=== PATIENT | female | born 1990 | race Caucasian/White ===

== ENCOUNTER → 2016-02-26 | Outpatient (CLI) | payer MEDICARE, MEDICAID ==
[~2016-02-26] MED LIST: BIRTH CONTROL PO; CILOXAN 5 ML5 ML OT; LANTUS100 U/ML SC; MULTIPLE VITAMI1 TA3 PO; NATURAL ZINC1 TAB PO; NOVOLOG10 ML SC; SINGULAIR10 M1 PO; Synthroid,Lev100 MCG PO; VITAMIN D5000 I3 PO; ZYRTEC10 M3 PO
[2016-02-26 16:54] LABS: HEMOGLOBIN A1c 6.7 % (4.8-5.6)
[2016-02-26 17:08] LABS: FREE T4 1.17 ng/dl (0.76-1.46)
== END | disposition home or self-care (01) ==
LOC: LAB 16:06
PROVIDERS: Family Medicine
DX: E10.9 Type 1 diabetes mellitus without complications (principal); E03.9 Hypothyroidism, unspecified

== ENCOUNTER → 2017-05-10 | Outpatient (CLI) | payer MEDICARE, MEDICAID | END | disposition home or self-care (01) | LOC: RAD 15:34 | DX: J84.89 Other specified interstitial pulmonary diseases (principal); J06.9 Acute upper respiratory infection, unspecified; J18.9 Pneumonia, unspecified organism; E03.9 Hypothyroidism, unspecified; E10.9 Type 1 diabetes mellitus without complications ==

== ENCOUNTER → 2019-08-30 | Outpatient (CLI) | payer OTHER, MEDICAID ==
[2019-08-30 09:44] LABS: MEAN CELL VOLUME 101.3 fl (81.0-99.0); MEAN CORPUSCULAR HGB 32.9 pg (27.0-31.0); MEAN CORPUSCULAR HGB CONC 32.5 g/dl (33.0-37.0); MEAN PLATELET VOLUME 9.4 fl (9.6-12.3); RED BLOOD COUNT 3.95 10*6/uL (4.10-5.10); RED CELL DISTRI WIDTH 13.7 % (0-14.5)
[2019-08-30 10:16] LABS: ALBUMIN 3.3 gm/dl (3.1-4.5); BUN 21 mg/dl (7-24); CHLORIDE 106 mmol/L (98-107); FREE T4 1.07 ng/dl (0.76-1.46); HDL CHOLESTEROL 97 mg/dl (40-60); POTASSIUM 3.9 mmol/L (3.5-5.1); SODIUM 138 mmol/L (136-145)
[2019-08-30 10:21] LABS: ALKALINE PHOSPHATASE 49 U/L (45-117); CHOLESTEROL 232 mg/dL (<200); CREATININE 0.73 mg/dL (0.55-1.02); LDL CHOLESTEROL 130 mg/dL (9-159); SGOT/AST 22 IU/L (3-35); SGPT/ALT 37 U/L (12-78); TOTAL PROTEIN 7.5 gm/dL (6.4-8.2); TRIGLYCERIDES 27 mg/dl (<150); VLDL CHOLESTEROL 5 mg/dL (6-40)
== END | disposition home or self-care (01) ==
LOC: LAB 08:24
PROVIDERS: Family Medicine
DX: E78.00 Pure hypercholesterolemia, unspecified (principal); E55.9 Vitamin D deficiency, unspecified; E10.9 Type 1 diabetes mellitus without complications; Q90.2 Trisomy 21, translocation

== ENCOUNTER → 2020-01-19 | Outpatient (CLI) | payer OTHER, MEDICAID | END | disposition home or self-care (01) | LOC: COVID19 10:31 | PROVIDERS: ATTEND Internal Medicine | DX: Z20.828 Contact with and (suspected) exposure to other viral communicable diseases (principal) ==

== ENCOUNTER → 2020-03-04 | Outpatient (CLI) | payer OTHER, MEDICAID ==
[2020-03-04 08:29] LABS: HEMATOCRIT 38.7 % (37.0-47.0); MEAN CORPUSCULAR HGB 32.7 pg (27.0-31.0); MEAN CORPUSCULAR HGB CONC 33.1 g/dl (33.0-37.0); MEAN PLATELET VOLUME 9.3 fl (9.6-12.3); RED BLOOD COUNT 3.91 10*6/uL (4.10-5.10); RED CELL DISTRI WIDTH 14.1 % (0-14.5); WHITE BLOOD COUNT 3.3 10*3/uL (4.8-10.8)
[2020-03-04 09:23] LABS: ALBUMIN 3.3 gm/dl (3.1-4.5); ALKALINE PHOSPHATASE 49 U/L (45-117); BUN 19 mg/dl (7-24); CHLORIDE 105 mmol/L (98-107); CHOLESTEROL 197 mg/dL (<200); CREATININE 0.74 mg/dL (0.55-1.02); POTASSIUM 3.7 mmol/L (3.5-5.1); SGOT/AST 21 IU/L (3-35); SGPT/ALT 24 U/L (12-78); SODIUM 138 mmol/L (136-145); TOTAL PROTEIN 7.4 gm/dL (6.4-8.2); TRIGLYCERIDES 38 mg/dl (<150); VLDL CHOLESTEROL 8 mg/dL (6-40)
[2020-03-04 09:29] LABS: FREE T4 1.21 ng/dl (0.76-1.46); HDL CHOLESTEROL 91 mg/dl (40-60); LDL CHOLESTEROL 98 mg/dL (9-159)
== END | disposition home or self-care (01) ==
LOC: LAB 07:52
PROVIDERS: ATTEND Family Medicine
DX: E11.9 Type 2 diabetes mellitus without complications (principal); E03.9 Hypothyroidism, unspecified; E78.00 Pure hypercholesterolemia, unspecified

== ENCOUNTER → 2020-11-27 | Outpatient (CLI) | payer OTHER, MEDICAID ==
[2020-11-27 13:19] LABS: HEMATOCRIT 37.9 % (37.0-47.0); MEAN CELL VOLUME 102.2 fl (81.0-99.0); MEAN CORPUSCULAR HGB CONC 33.2 g/dl (33.0-37.0); RED BLOOD COUNT 3.71 10*6/uL (4.10-5.10); WHITE BLOOD COUNT 5.9 10*3/uL (4.8-10.8)
[2020-11-27 13:38] LABS: BUN 24 mg/dl (7-24); CHLORIDE 107 mmol/L (98-107); CHOLESTEROL 255 mg/dL (<200); CREATININE 0.72 mg/dL (0.55-1.02); POTASSIUM 4.4 mmol/L (3.5-5.1); SGOT/AST 21 IU/L (3-35); SGPT/ALT 29 U/L (12-78); SODIUM 139 mmol/L (136-145); TRIGLYCERIDES 48 mg/dl (<150)
[2020-11-27 13:39] LABS: ALKALINE PHOSPHATASE 47 U/L (45-117); LDL CHOLESTEROL 150 mg/dL (9-159); TOTAL PROTEIN 7.2 gm/dL (6.4-8.2)
[2020-11-27 13:45] LABS: FREE T4 1.09 ng/dl (0.76-1.46)
[2020-11-27 14:08] LABS: VITAMIN D, 25-HYDROXY 34.8 ng/mL (30-100)
== END | disposition home or self-care (01) ==
LOC: LAB 12:26
PROVIDERS: ATTEND Family Medicine
DX: E03.9 Hypothyroidism, unspecified (principal); R53.83 Other fatigue; E78.00 Pure hypercholesterolemia, unspecified; E55.9 Vitamin D deficiency, unspecified; E10.9 Type 1 diabetes mellitus without complications

== ENCOUNTER → 2021-04-10 | Outpatient (CLI) | payer OTHER, MEDICAID ==
[2021-04-10 09:28] LABS: HEMATOCRIT 38.1 % (37.0-47.0); MEAN CORPUSCULAR HGB 33.8 pg (27.0-31.0); MEAN CORPUSCULAR HGB CONC 34.1 g/dl (33.0-37.0); MEAN PLATELET VOLUME 8.9 fl (9.6-12.3); RED BLOOD COUNT 3.85 10*6/uL (4.10-5.10); WHITE BLOOD COUNT 3.8 10*3/uL (4.8-10.8)
[2021-04-10 09:59] LABS: ALBUMIN 3.3 gm/dl (3.1-4.5); BUN 23 mg/dl (7-24); CHLORIDE 103 mmol/L (98-107); CREATININE 0.72 mg/dL (0.55-1.02); POTASSIUM 3.7 mmol/L (3.5-5.1); SODIUM 136 mmol/L (136-145); VITAMIN D, 25-HYDROXY 24.7 ng/mL (30-100)
[2021-04-10 10:10] LABS: ALKALINE PHOSPHATASE 48 U/L (45-117); CHOLESTEROL 187 mg/dL (<200); LDL CHOLESTEROL 86 mg/dL (9-159); SGOT/AST 22 IU/L (3-35); SGPT/ALT 34 U/L (12-78); TOTAL PROTEIN 7.1 gm/dL (6.4-8.2); TRIGLYCERIDES 22 mg/dl (<150)
[2021-04-11 05:06] LABS: FOLLICLE STIMULATING HORMONE 9.6 mIU/mL (.); LUTEINIZING HORMONE 9.2 mIU/mL (.)
[2021-04-12 14:08] LABS: TESTOSTERONE FREE, (DIRECT) 1.7 pg/mL (0.0-4.2)
== END | disposition home or self-care (01) ==
LOC: LAB 09:01
PROVIDERS: ATTEND Family Medicine
DX: E10.8 Type 1 diabetes mellitus with unspecified complications (principal); E78.00 Pure hypercholesterolemia, unspecified; E55.9 Vitamin D deficiency, unspecified

== ENCOUNTER → 2022-02-10 | Outpatient (CLI) | payer OTHER, MEDICAID ==
[2022-02-10 15:42] LABS: MEAN CELL VOLUME 96.4 fl (81.0-99.0); MEAN CORPUSCULAR HGB 33.3 pg (27.0-31.0); MEAN CORPUSCULAR HGB CONC 34.5 g/dl (33.0-37.0); MEAN PLATELET VOLUME 9.1 fl (9.6-12.3); RED BLOOD COUNT 4.15 10*6/uL (4.10-5.10); RED CELL DISTRI WIDTH 12.9 % (0-14.5); WHITE BLOOD COUNT 6.4 10*3/uL (4.8-10.8)
[2022-02-10 16:18] LABS: ALKALINE PHOSPHATASE 59 U/L (46-116); BUN 23 mg/dl (9-23); CHLORIDE 99 mmol/L (98-107); CHOLESTEROL 216 mg/dL (<200); FREE T4 1.39 ng/dl (0.89-1.76); LDL CHOLESTEROL 123 mg/dL (9-159); POTASSIUM 4.2 mmol/L (3.4-5.1); SGPT/ALT 16 U/L (10-49); SODIUM 136 mmol/L (136-145); TOTAL PROTEIN 7.3 gm/dL (6.0-8.0); TRIGLYCERIDES 69 mg/dl (<150)
[2022-02-10 16:23] LABS: VITAMIN D, 25-HYDROXY 38.7 ng/mL (30-100)
== END | disposition home or self-care (01) ==
LOC: LAB 15:22
PROVIDERS: ATTEND Family Medicine
DX: E03.9 Hypothyroidism, unspecified (principal); E55.9 Vitamin D deficiency, unspecified; Z79.899 Other long term (current) drug therapy

== ENCOUNTER → 2022-06-05 | Outpatient (CLI) | payer OTHER, MEDICAID ==
[2022-06-05 10:38] LABS: HEMATOCRIT 40.3 % (37.0-47.0); MEAN CELL VOLUME 99.5 fl (81.0-99.0); MEAN CORPUSCULAR HGB 33.3 pg (27.0-31.0); MEAN CORPUSCULAR HGB CONC 33.5 g/dl (33.0-37.0); MEAN PLATELET VOLUME 9.2 fl (9.6-12.3); RED BLOOD COUNT 4.05 10*6/uL (4.10-5.10); RED CELL DISTRI WIDTH 14.7 % (0-14.5); WHITE BLOOD COUNT 6.3 10*3/uL (4.8-10.8)
[2022-06-05 11:35] LABS: ALKALINE PHOSPHATASE 47 U/L (46-116); BUN 13 mg/dl (9-23); CHLORIDE 104 mmol/L (98-107); CHOLESTEROL 206 mg/dL (<200); CPK 46 U/L (34-171); LDL CHOLESTEROL 110 mg/dL (9-159); SGPT/ALT 22 U/L (10-49); TOTAL PROTEIN 7.1 gm/dL (6.0-8.0); TRIGLYCERIDES 43 mg/dl (<150)
[2022-06-05 11:39] LABS: VITAMIN D, 25-HYDROXY 37.7 ng/mL (30-100)
== END | disposition home or self-care (01) ==
LOC: LAB 10:01
PROVIDERS: ATTEND Family Medicine
DX: E11.9 Type 2 diabetes mellitus without complications (principal); I10 Essential (primary) hypertension; E55.9 Vitamin D deficiency, unspecified; E03.9 Hypothyroidism, unspecified; E78.00 Pure hypercholesterolemia, unspecified; R53.83 Other fatigue